=== PATIENT | female | born 1940 | race Caucasian/White ===

== ENCOUNTER 2019-08-22 06:00 | Outpatient (RCR) | payer MEDICARE, OTHER, SELFPAY | END 2019-09-11 23:00 | disposition home or self-care (01) | LOC: SOT 06:00 | PROVIDERS: PCP Family Medicine; Referring Provider Family Medicine; Visit Provider Family Medicine | DX: M19.90 Unspecified osteoarthritis, unspecified site (principal); M25.50 Pain in unspecified joint | CPT/HCPCS: 97167; 97530 ==